=== PATIENT | female | born 1960 | race Caucasian/White ===

== ENCOUNTER → 2017-06-03 | Outpatient (CLI) | payer MEDICAID ==
--- NOTE | 2017-06-08 13:48 | MM ---
Reason for exam: screening (asymptomatic). Last mammogram was performed 1 year and 5 months ago. History: Patient has history of breast cancer at age 43 and is nulliparous. Malignant excisional biopsy of the right breast, 2004. Physical Findings: A clinical breast exam by your physician is recommended on an annual basis and results should be correlated with mammographic findings. MG 3D Screening Mammo W/Cad Bilateral CC and MLO view(s) were taken. XCCL view(s) were taken of the right breast. Prior study comparison: January 02, 2016, mammogram, performed at [facility]. November 27, 2014, mammogram, performed at [facility]. The breast tissue is heterogeneously dense. This may lower the sensitivity of mammography. Stable benign calcifications. Post operative changes in the right breast of lumpectomy. Focal asymmetry inner upper left breast 6.7cm from nipple. This finding is changed when compared with previous exams. ASSESSMENT: Incomplete: need additional imaging evaluation, BI-RAD 0 RECOMMENDATION: Special view mammogram of the left breast. If lesion persists on supplemental views, image directed ultrasound is recommended. [facility] will attempt to contact patient to return for supplemental views and ultrasound if indicated.
== END | disposition home or self-care (01) ==
LOC: RADMAMWWP 12:59
PROVIDERS: ATTEND Obstetrics & Gynecology
DX: Z12.31 Encounter for screening mammogram for malignant neoplasm of breast (principal); R92.8 Other abnormal and inconclusive findings on diagnostic imaging of breast
CPT/HCPCS: 77063; G0202

== ENCOUNTER → 2017-06-18 | Outpatient (CLI) | payer MEDICAID ==
--- NOTE | 2017-06-21 09:28 | MM ---
Reason for exam: additional evaluation requested from prior study. Last mammogram was performed less than 1 month ago. History: Patient is postmenopausal, has history of breast cancer at age 43, and is nulliparous. Malignant excisional biopsy of the right breast, 2003. Took hormonal contraceptives for 20 years beginning at age 22. Took antineoplastic beginning at age 44. Physical Findings: Nurse did not find any significant physical abnormalities on exam. MG 3D Work Up W/Cad LT LM, spot compression CC, and spot compression MLO view(s) were taken of the left breast. Prior study comparison: June 03, 2017, bilateral MG 3d screening mammo w/cad. January 02, 2016, mammogram, performed at [facility]. There are scattered fibroglandular densities. There is no discrete abnormality, including left upper inner quadrant. No significant new findings when compared with previous films. These results were verbally communicated with the patient and result sheet given to the patient on 06/18/17. ASSESSMENT: Benign, BI-RAD 2 RECOMMENDATION: Routine screening mammogram of both breasts in 1 year.
== END ==
LOC: RADMAMWWP 13:44
PROVIDERS: ATTEND Obstetrics & Gynecology
DX: R92.8 Other abnormal and inconclusive findings on diagnostic imaging of breast (principal)
CPT/HCPCS: G0206; G0279

== ENCOUNTER → 2017-07-20 | Outpatient (CLI) | payer MEDICAID ==
--- NOTE | 2017-07-20 10:23 | BD ---
EXAMINATION TYPE: MG DEXA axial skeleton. DATE OF EXAM: 07/20/2017 CLINICAL HISTORY: Postmenopausal female Height: 65.5 Weight: 145 FRAX RISK QUESTIONS: Alcohol (3 or more units per day): no Family History (Parent hip fracture): yes, mother Glucocorticoids (More than 3mos): no (Ex: prednisone, prednisolone, methylprednisolone, dexamethasone, and hydrocortisone). History of Fracture in Adulthood: clavicle in 40's Secondary Osteoporosis: 1. Type 1 Diabetes: no 2. Hyperthyroidism: no 3. Menopause before 45: no 4. Malnutrition: no 5. Chronic liver disease: no Rheumatoid Arthritis: no Current Tobacco Use: no RISK FACTORS HISTORY OF: Family History of Osteoporosis: none known Active: yes Diet low in dairy products/other sources of calcium: no Postmenopausal woman: yes Take estrogen and/or progesterone medications: no Lost more than 2 inches in height since high school: no Frequent falls: no Poor Health: no Hyperparathyroidism: no Adrenal Insufficiency: no MEDICATIONS: Prednisone or other steroids: no Thyroid Medications: no Osteoporosis Medications: no Additional Medications: calcium, vitamin D Additional History: Breast CA age 43; chemo/radiation; 5 years Tamoxifen; 5 years Arimidex EXAM MEASUREMENTS: Bone mineral densitometry was performed using the [email or web address] System. Bone mineral density as measured about the Lumbar spine is: ----- L1-L4(G/cm2): 1.007 T Score Values are as follows: ----- L2: -1.9 ----- L3: -1.9 ----- L4: -0.7 ----- L1-L4: -1.4 Bone mineral density not done previously at this facility; test done elsewhere years ago Bone mineral density about the R hip (g/cm2): 0.837 Bone mineral density about the L hip (g/cm2): 0.851 T Score values are as follows: -----R Neck: -1.4 -----L Neck: -1.3 -----R Total: -1.0 -----L Total: -0.7 Bone mineral density not done previously at this facility; test done elsewhere years ago IMPRESSION: Osteopenia NOTE: T-SCORE=SD OF THE YOUNG ADULT MEAN.
== END | disposition home or self-care (01) ==
LOC: RADBDWWP 07:12
PROVIDERS: ATTEND Obstetrics & Gynecology
DX: M85.80 Other specified disorders of bone density and structure, unspecified site (principal); N95.0 Postmenopausal bleeding
CPT/HCPCS: 77080